=== PATIENT | male | born 1975 | race Caucasian/White ===

== ENCOUNTER → 2023-05-18 10:18 | Outpatient (CLI) | payer OTHER, SELFPAY ==
[2023-05-18 11:53] LABS: Hemoglobin A1C% w Est Avg Glu 5.2 % (4.0-6.0)
[2023-05-18 12:15] LABS: Alanine Aminotransferase 31 IU/L (<50); Albumin 4.6 g/dL (3.5-5.0); Albumin Globulin Ratio 1.6 (1.0-2.8); Alkaline Phosphatase 41 U/L (38-126); Aspartate Aminotransferase 21 IU/L (17-59); BUN Creatinine Ratio 25.2 (6-22); Bilirubin Total 0.7 mg/dL (0.2-1.3); Blood Urea Nitrogen 28 mg/dL (9-20); Calcium 9.7 mg/dL (8.4-10.2); Carbon Dioxide 28 mmol/L (22-32); Chloride 103 mmol/L (98-107); Cholesterol 198 mg/dL (140-199); Estimated Glomerular Filt Rate > 60 mL/min (>60); Globulin 2.8 g/dL (1.7-4.1); Glucose 86 mg/dL (70-100); HDL Cholesterol 56 mg/dL (40-60); HEMOLYSIS < 15 (0-50); LDL Cholesterol Calculated 130 mg/dL (<100); Potassium 4.4 mmol/L (3.4-5.1); Sodium 138 mmol/L (137-145); Total Protein 7.4 g/dL (6.3-8.2); Triglycerides 60 mg/dL (35-150)
== END ==
PROVIDERS: PCP Family Medicine; Referring Provider Family Medicine; Visit Provider Family Medicine
DX: Z00.00 Encounter for general adult medical examination without abnormal findings (principal); R73.01 Impaired fasting glucose; M77.00 Medial epicondylitis, unspecified elbow
CPT/HCPCS: 36415; 80053; 80061; 83036

== ENCOUNTER 2023-09-25 07:38 | Day surgery (SDC) | payer OTHER, SELFPAY ==
[2023-09-25 07:53] VITALS: BP 112/60; PULSE 53; RESP 16; TEMP 36.3; O2SAT 100
[2023-09-25] MEDS: LACTATED RINGERS 1,000 ML 42 ML IV (08:01)
--- NOTE | 2023-09-25 08:17 | P.HP_ITS ---
History of Present Illness History of Present Illness Date Patient Seen: 09/25/23 Time Patient Seen: 08:17 Chief complaint: SDC Narrative: 48-year-old man personal history of colonic polyps here for screening colonoscopy. Last colonoscopy 3-4 years ago. No family history of intestinal malignancy. No abdominal concerns today. FOR[facility]LY [facility] Medical History IFG (impaired fasting glucose) Surgical History History of arthroscopy of shoulder H/O nasal septoplasty Social History Smoking Status: Never smoker alcohol intake: current Meds Home Medications and Allergies Home Medications Medication Instructions Recorded Confirmed Type peg 3350-sod sulf,[id number] 1,000 ml PO DIRECTED #2,000 mL 08/20/23 Rx 178.7-7.3-0.5-1.12-0.9 gram oral soln (Suflave) Allergies Allergy/AdvReac Type Severity Reaction Status Date / Time No Known Drug Allergies Allergy Unverified 09/25/23 07:49 Exam Vital Signs (past 8 hours): - 09/25/23 07:53 Temperature 97.3 F L Pulse Rate 53 L Respiratory Rate 16 Blood Pressure 112/60 Pulse Oximetry 100 Oxygen Delivery Method Room Air Oxygen Delivery Method Room Air Narrative Exam Narrative: General adult man alert oriented no acute distress Chest nonlabored respiration Extremities warm well perfused Assessment & Plan Assessment & Plan narrative: The patient requires colorectal screening and colonoscopy is recommended. Technical details were discussed. Risks, benefits, alternatives explained. Risks including but not limited to myocardial infarction, aspiration, bleeding, pain, missed lesion, incomplete examination, need for further radiographic studies, colonic perforation, and need for major abdominal surgery were discussed. All questions were answered to their satisfaction, and they are in agreement with this plan.
[2023-09-25 08:55] VITALS: BP 98/36; PULSE 58; RESP 19; TEMP 36.1; O2SAT 94
--- NOTE | 2023-09-25 08:56 | P.OP.COLON_ITS ---
Operative Date/Time/Diagnoses Date of procedure: 09/25/23 Time of procedure: 08:56 Pre-op diagnosis: Personal history of colonic polyps Procedure & Clinicians Study performed: Colonoscopy Same procedure as scheduled: Yes Indications: Personal history of colonic polyps Colorectal screening Surgeon: Roderick Trujillo Procedure Notes Procedure in detail: The history and physical was performed/updated and the patient is ASA class is 1. The procedure was discussed in detail with the patient. Potential risks complications including infection, bleeding, missed diagnosis, perforation, need for surgery, and were explained. Their questions were answered and informed consent was obtained. Patient was brought to the procedure room and placed standard monitoring equipment. The patient's vital signs were monitored continuously throughout the entire procedure. Prior to starting time-out was performed. The patient was placed in the left lateral recumbent position. Procedural sedation was administered by anesthesia. Examination began with a thorough inspection of the perianal area there was no evidence of fissures, fistulae, external hemorrhoids or cutaneous malignancy. The colonoscopy scope was then placed into the anal canal and was advanced to the cecum, which was identified by the ileocecal valve, the appendiceal orifice and the confluence of the taenia. The scope was then slowly withdrawn examining colon thoroughly in all directions, irrigating it of any residual stool. The scope was retroflexed within the rectum The patient tolerated the procedure well. They will be discharged once criteria are met. The prep was of good/excellent quality. The withdrawl time was 7 minutes. FINDINGS * Normal healthy colon. No masses polyps or inflammation. * Previous endoscopic tattoo noted. Specimen(s): none sent Impression: Normal colonoscopy Post-procedure Recommendations: Colonoscopy in 10 years Disposition: same day surgery
[2023-09-25 09:00] VITALS: BP 99/51; PULSE 62; RESP 12; O2SAT 96
[2023-09-25 09:05] VITALS: BP 102/48; PULSE 51; RESP 18; TEMP 36.1; O2SAT 97
[2023-09-25 09:10] VITALS: BP 106/53; PULSE 48; RESP 17; TEMP 36.1; O2SAT 99
== END 2023-09-25 09:21 | disposition home or self-care (01) ==
PROVIDERS: PCP Family Medicine; Referring Provider Surgery; Visit Provider Surgery
PROC: 0DJD8ZZ Inspection of Lower Intestinal Tract, Via Natural or Artificial Opening Endoscopic (ICD-10-PCS; CPT 45378; principal; 2023-09-25 08:15)
DX: Z12.11 Encounter for screening for malignant neoplasm of colon (principal); Z86.010 Personal history of colon polyps
CPT/HCPCS: 45378; J2704

== ENCOUNTER 2024-05-07 16:24 | Emergency (ER) | payer OTHER, SELFPAY ==
[2024-05-07 16:34] VITALS: BP 140/70; PULSE 66; RESP 18; TEMP 36.6; O2SAT 98; BMI 26.4
--- NOTE | 2024-05-07 18:02 | ED.BACK ---
HPI - Back Pain/Injury <Awa Holguin PA-C - Last Filed: 05/07/24 19:20> General Chief Complaint: Back Pain/Injury Stated Complaint: lower back px, shooting down left leg Time Seen by Provider: 05/07/24 18:02 History of Present Illness HPI Narrative: Mr. Cain is a very pleasant 49-year-old male with no reported past medical history who presents to the emergency department for left-sided low back pain x2 weeks now radiating down the left leg x1 day. Patient reports he was lifting something about 2 weeks ago off the ground when he developed sudden but mild pain in the left side of his low back. States that this pain has been constant over the last 2 weeks and does not resolve with Advil. This morning when he woke up, he had sensation of sharp pain radiating down the left lateral thigh which prompted his ED arrival. Patient denies numbness, tingling, weakness, new trauma to the low back, bowel or bladder incontinence, history of cancer, history of IV drug use, fevers, chills, abdominal pain, chest pain, shortness of breath. Related Data Previous Rx's Medication Instructions Recorded cyclobenzaprine 5 mg tablet 5 mg PO TID PRN muscle spasm #15 05/07/24 tabs lidocaine 5 % topical patch 1 patch topical DAILY #15 ea 05/07/24 (Lidoderm) prednisone 20 mg tablet 40 mg (2 x 20 mg) PO DAILY 5 days 05/07/24 #10 tabs Allergies Allergy/AdvReac Type Severity Reaction Status Date / Time No Known Drug Allergies Allergy Unverified 09/25/23 07:49 Review of Systems <Awa Holguin PA-C - Last Filed: 05/07/24 19:20> Review of Systems ROS Unobtainable: All systems reviewed & are unremarkable except as noted in HPI and below Patient History <Awa Holguin PA-C - Last Filed: 05/07/24 19:20> Medical History IFG (impaired fasting glucose) Surgical History History of arthroscopy of shoulder H/O nasal septoplasty Social History Smoking Status: Never smoker alcohol intake: current Smoking Status: Never smoker alcohol intake frequency: holidays/special occasions only Substance Use Type: does not use Exam <Awa Holguin PA-C - Last Filed: 05/07/24 19:20> Narrative Exam Narrative: GENERAL: 49 year old patient appears stated age. Well-developed athletic patient, in no acute distress. HEAD: Atraumatic. Normocephalic. EYES: Extraocular motions intact. No scleral icterus. No injection or drainage. ENT: Nose without bleeding, purulent drainage. Airway patent. NECK: Trachea midline. Cervical ROM intact. No midline neck pain. CARDIOVASCULAR: Regular rate and rhythm. RESPIRATORY: ?Nonlabored respirations. ?Speaking in clear, full sentences. ?Clear to auscultation. Breath sounds equal bilaterally. No wheezes, rales, or rhonchi. ? GASTROINTESTINAL: Abdomen soft, non-tender, nondistended. EXTREMITIES: No edema or joint tenderness. BACK: Reproducible muscle spasm with palpation of the left lumbar paraspinal muscles. No midline tenderness of the lumbar spine, thoracic spine, or cervical spine. Negative bilateral straight leg raise. NEURO: AOx3. ?Clear speech. ?Moves all 4 extremities appropriately. 5/5 bilateral upper and lower extremity strength including plantar and dorsiflexion, knee flex/extension, hip extension. Sensation intact to light touch throughout the upper and lower extremities. SKIN: No rash or erythema of visible areas Initial Vital Signs Initial Vital Signs: Vital Signs Temperature 97.8 F 05/07/24 16:34 Pulse Rate 66 05/07/24 16:34 Respiratory Rate 18 05/07/24 16:34 Blood Pressure 140/70 05/07/24 16:34 Pulse Oximetry 98 05/07/24 16:34 Oxygen Delivery Method Room Air 05/07/24 16:34 <Becky Schilling DO - Last Filed: 05/08/24 02:37> Initial Vital Signs Initial Vital Signs: Vital Signs Temperature 97.8 F 05/07/24 16:34 Pulse Rate 66 05/07/24 16:34 Respiratory Rate 18 05/07/24 16:34 Blood Pressure 140/70 05/07/24 16:34 Pulse Oximetry 98 05/07/24 16:34 Oxygen Delivery Method Room Air 05/07/24 16:34 Course <Awa Holguin PA-C - Last Filed: 05/07/24 19:20> Orders Ordered: Discontinued Medications Acetaminophen (Acetaminophen 325 Mg Tablet) 975 mg PO NOW ONE Stop: 05/07/24 18:24 Last Admin: 05/07/24 18:49 Dose: 975 mg Documented By: ANDREWS Ketorolac Tromethamine (Ketorolac 30 Mg/Ml Vial) 30 mg IM NOW ONE Stop: 05/07/24 18:24 Last Admin: 05/07/24 18:49 Dose: 30 mg Documented By: ANDREWS Prednisone (Prednisone 20 Mg Tablet) 40 mg PO NOW ONE Stop: 05/07/24 18:24 Last Admin: 05/07/24 18:49 Dose: 40 mg Documented By: ANDREWS Vital Signs Vital signs: Vital Signs - 8 hr 05/07/24 18:58 Temperature 98.6 F Pulse Rate 70 Respiratory Rate 20 Blood Pressure 141/65 H Pulse Oximetry 100 Oxygen Delivery Method Room Air <Becky Schilling DO - Last Filed: 05/08/24 02:37> Orders Ordered: Discontinued Medications Acetaminophen (Acetaminophen 325 Mg Tablet) 975 mg PO NOW ONE Stop: 05/07/24 18:24 Last Admin: 05/07/24 18:49 Dose: 975 mg Documented By: ANDREWS Ketorolac Tromethamine (Ketorolac 30 Mg/Ml Vial) 30 mg IM NOW ONE Stop: 05/07/24 18:24 Last Admin: 05/07/24 18:49 Dose: 30 mg Documented By: ANDREWS Prednisone (Prednisone 20 Mg Tablet) 40 mg PO NOW ONE Stop: 05/07/24 18:24 Last Admin: 05/07/24 18:49 Dose: 40 mg Documented By: ANDREWS Vital Signs Vital signs: Vital Signs - 8 hr 05/07/24 18:58 Temperature 98.6 F Pulse Rate 70 Respiratory Rate 20 Blood Pressure 141/65 H Pulse Oximetry 100 Oxygen Delivery Method Room Air MDM - Back Pain/Injury <Awa Holguin PA-C - Last Filed: 05/07/24 19:20> MDM Narrative Medical decision making narrative: Otherwise healthy 49-year-old male presents to the emergency department for left low back pain radiating down the left leg. Differential diagnosis includes but is not limited to spinal stenosis, lumbar radiculopathy, muscle spasm, acute ligamentous injury, acute muscle strain, disc herniation, degenerative disc disease, spinal hematoma, other. Patient denies any red flag symptoms such as bowel or bladder dysfunction, immunocompromise history, IV drug use, direct trauma, fevers. On exam patient is in no acute distress, nontoxic-appearing, all vital signs within normal limits, steady gait and strong bilateral lower extremity strength. He has tenderness and reproducible muscle spasm in the left paraspinal lumbar region. Suspect patient's symptoms are related to a muscle strain and subsequent spasm of the left lumbar paraspinal region. I had an extensive discussion with the patient and after shared decision-making, we determined not to obtain a CT today as he has no neurologic deficits and no direct trauma to the back including no concerning past medical history. In the ED, we will treat with Toradol, Tylenol, prednisone. We will prescribe patient a short course of prednisone and muscle relaxers in addition to recommending ibuprofen, Tylenol, gentle exercise. Patient may also benefit from Lidoderm patches and warm compress. Discussed strict ER return precautions. Recommended follow up with PCP within the next week. Patient verbalized understanding of all information and is stable for discharge. Discharge Plan Departure Patient Disposition: Home Clinical Impression: Spasm of lumbar paraspinous muscle, Left lumbar radiculopathy Instructions: DI for Back Pain With Sciatica, DI for Back Spasm Activity Restrictions/Additional Instructions: Today you were evaluated for left-sided low back pain radiating down the left leg. Your physical exam is most consistent with a muscle spasm in this area. I have prescribed you a muscle relaxer called of Flexeril that you can take up to 3 times a day. If you do not have any improvement with the 5 mg dose, you can take 10 mg of Flexeril at 1 time. Please do not drink alcohol or drive a car while taking muscle relaxers as they can make you drowsy. Please also complete the course of prednisone which is a steroid to help with inflammation. You may use the prescribed lidocaine patches directly on area of pain. Please take 1000 mg of Tylenol and 600 mg of ibuprofen every 8 hours for pain. You may use heat compress on the muscle spasm to help as well. Please rest and perform light activities only. Avoid heavy lifting while your back hurts. Return to the ER immediately if you develop any new or worsening symptoms. Otherwise follow up with your primary care doctor in the next week for repeat evaluation. Thank you for letting me participate in your care, Awa Holguin PA-C Prescriptions: New cyclobenzaprine 5 mg tablet 5 mg PO TID PRN (Reason: muscle spasm) Qty: 15 0RF prednisone 20 mg tablet 40 mg PO DAILY 5 Days Qty: 10 0RF lidocaine [Lidoderm] 5 % adhesive patch,medicated 1 patch topical DAILY Qty: 15 0RF Rx Instructions: leave on most painful area for up to 12 hrs Referrals: Laureen Stallworth DO [Primary Care Provider] - Stand Alone Forms: Patient Portal/API/Survey ED Sign-out <Becky Schilling DO - Last Filed: 05/08/24 02:37> Cosign ED Attending Yfnature Attestation: I was available for consultation.
[2024-05-07] MEDS: ACETAMINOPHEN 325 MG TABLET 975 MG PO (18:49)
[2024-05-07] MEDS: KETOROLAC 30 MG/ML VIAL IM (18:49)
[2024-05-07] MEDS: predniSONE 20 MG TABLET 40 MG PO (18:49)
[2024-05-07 18:58] VITALS: BP 141/65; PULSE 70; RESP 20; TEMP 37; O2SAT 100
== END 2024-05-07 18:58 | disposition home or self-care (01) ==
PROVIDERS: Emergency Provider Physician Assistant; PCP Family Medicine
DX: M62.830 Muscle spasm of back (principal); M54.16 Radiculopathy, lumbar region
CPT/HCPCS: 96372; 99283; J1885

== ENCOUNTER → 2024-05-20 10:39 | Outpatient (CLI) | payer BC, OTHER, SELFPAY ==
[2024-05-20 11:34] LABS: Alanine Aminotransferase 30 IU/L (<50); Albumin 4.6 g/dL (3.5-5.0); Albumin Globulin Ratio 2.1 (1.0-2.8); Alkaline Phosphatase 41 U/L (38-126); Aspartate Aminotransferase 22 IU/L (17-59); BUN Creatinine Ratio 20.7 (6-22); Bilirubin Total 0.5 mg/dL (0.2-1.3); Blood Urea Nitrogen 30 mg/dL (9-20); Calcium 9.7 mg/dL (8.4-10.2); Carbon Dioxide 27 mmol/L (22-32); Chloride 103 mmol/L (98-107); Cholesterol 212 mg/dL (140-199); Estimated Glomerular Filt Rate 59 mL/min (>60); Globulin 2.2 g/dL (1.7-4.1); Glucose 55 mg/dL (70-100); HDL Cholesterol 70 mg/dL (40-60); HEMOLYSIS < 15 (0-50); LDL Cholesterol Calculated 127 mg/dL (<100); Potassium 4.2 mmol/L (3.4-5.1); Sodium 138 mmol/L (137-145); Total Protein 6.8 g/dL (6.3-8.2); Triglycerides 77 mg/dL (35-150)
[2024-05-20 12:05] LABS: Prostate Specific Antigen Scrn 0.865 ng/mL (0.1-4.0)
[2024-05-20 12:26] LABS: HIV 1 & 2 Ab/Ag 4th Gen Combo NEGATIVE (NEGATIVE); Hep C Virus Ab w/Reflex Quant NEGATIVE s/c (NEGATIVE)
== END ==
PROVIDERS: PCP Family Medicine; Referring Provider Family Medicine; Visit Provider Family Medicine
DX: Z00.00 Encounter for general adult medical examination without abnormal findings (principal); Z12.5 Encounter for screening for malignant neoplasm of prostate
CPT/HCPCS: 36415; 80053; 80061; 86803; 87389; G0103

== ENCOUNTER → 2024-07-11 11:05 | Outpatient (CLI) | payer BC, OTHER, SELFPAY ==
[2024-07-11 12:12] LABS: Add Manual Diff / Slide Review NO; Basophils Absolute Auto 0 /uL (0-100); Basophils Percent Auto 0.6 % (0-2); Eosinophils Absolute Auto 100 /uL (0-450); Eosinophils Percent Auto 1.1 % (2-4); Hematocrit 43.3 % (41-53); Hemoglobin 14.7 g/dL (13.5-17.5); Lymphocytes Absolute Auto 1700 /uL (1100-4500); Lymphocytes Percent Auto 33.9 % (25-40); Mean Corpuscular Hemoglobin 29.8 PG (26-34); Mean Corpuscular Volume 87.6 fL (80-100); Monocytes Absolute Auto 400 /uL (0-900); Monocytes Percent Auto 7.6 % (3-14); Neutrophils Absolute Auto 2900 /uL (1500-7000); Neutrophils Percent Auto 56.8 % (50-75); Platelet Count 234 X10^3/uL (150-400); Red Blood Cell Count 4.94 X10^6/uL (4.5-5.9); Red Cell Distribution Width 14.6 % (11.6-14.8); White Blood Cell Count 5.1 X10^3/uL (4.5-11.0)
[2024-07-11 12:31] LABS: BUN Creatinine Ratio 22.3 (6-22); Blood Urea Nitrogen 23 mg/dL (9-20); Calcium 9.4 mg/dL (8.4-10.2); Carbon Dioxide 28 mmol/L (22-32); Chloride 101 mmol/L (98-107); Estimated Glomerular Filt Rate > 60 mL/min (>60); Glucose 127 mg/dL (70-100); HEMOLYSIS < 15 (0-50); Potassium 4.1 mmol/L (3.4-5.1); Sodium 138 mmol/L (137-145)
[2024-07-11 13:48] LABS: Appearance Urine UA CLEAR; Bilirubin Urine UA NEGATIVE (NEGATIVE); Color Urine UA YELLOW; Glucose Urine UA NEGATIVE (Negative); Ketones Urine UA NEGATIVE (NEGATIVE); Leukocyte Esterase Urine UA NEGATIVE (NEGATIVE); Nitrite Urine UA NEGATIVE (Negative); Occult Blood Urine UA NEGATIVE (Negative); Protein Urine UA NEGATIVE (Negative); Specific Gravity Urine UA <=1.005 (1.000-1.035); Urobilinogen Urine UA 0.2 E.U./dL (0.2); pH Urine UA 5.5 (4.5-8.0)
[2024-07-11 13:50] LABS: Urine Volume 10mL (spun)
[2024-07-11 13:51] LABS: Bacteria Urine None Seen; Culture Indicated Urine Cult Not Indicated; RBC Urine None Seen (0-5/HPF); Squamous Epithelial Cell Urine None Seen (0-5/HPF); WBC Urine None Seen (0-5/HPF)
[2024-07-11 14:51] LABS: Creatinine Urine Random 34.54 mg/dL
[2024-07-11 14:57] LABS: Microalbumin Urine Random < 0.6 mg/dL (0-1.6)
== END ==
PROVIDERS: PCP Family Medicine; Referring Provider Family Medicine; Visit Provider Family Medicine
DX: N28.9 Disorder of kidney and ureter, unspecified (principal)
CPT/HCPCS: 36415; 80048; 81001; 82043; 82570; 85025

== ENCOUNTER → 2024-07-18 09:02 | Outpatient (CLI) | payer OTHER, SELFPAY | PROVIDERS: PCP Family Medicine; Referring Provider Family Medicine; Visit Provider Family Medicine | DX: R73.01 Impaired fasting glucose (principal) | CPT/HCPCS: 36415; 83036 ==

== ENCOUNTER 2024-11-28 19:33 | Emergency (ER) | payer OTHER, SELFPAY ==
[2024-11-28 19:35] VITALS: BP 119/56; PULSE 59; RESP 16; TEMP 36.7; O2SAT 98; BMI 26.5
--- NOTE | 2024-11-28 21:08 | ED_ITS ---
HPI - Neck Pain/Injury General Chief Complaint: Neck Pain/Injury Stated Complaint: possible ear infection throat hurts Time Seen by Provider: 11/28/24 21:08 Mode of arrival: Ambulatory History of Present Illness HPI Narrative: 49-year-old male without any significant past medical history comes into the ED from home for evaluation of multiple complaints. He states that he has been having left-sided neck/throat discomfort for the past 2 weeks, states it is not getting any worse but is not improving, he states that he has a about to travel in the next week and wanted it to be evaluated, he denies any difficulty swallowing breathing, on exam patient is speaking in full sentences protecting airway no voice changes no stridor no trismus. Related Data Previous Rx's ?Medication ?Instructions ?Recorded valacyclovir 1 gram tablet 2,000 mg (2 x 1 gram) PO .C OMPLEX 08/11/24 PRN cold sores #4 tabs scopolamine base 1 mg over 3 days 1 patch transdermal Q3D PRN sea 11/24/24 transdermal patch sickness #10 ea amoxicillin 875 mg-potassium 1 tab PO BID 10 days #20 tabs 11/28/24 clavulanate 125 mg tablet Allergies Allergy/AdvReac Type Severity Reaction Status Date / Time No Known Drug Allergies Allergy Verified 11/28/24 19:41 Review of Systems Review of Systems Narrative: General: Denies fever, chills, weight loss HEENT: Positive sore throat, Denies headache, eye drainage, eye irritation, head trauma,voice change Cardiovascular: Denies any chest pain, palpitations, tachycardia Respiratory: Denies any shortness of breath, cough, wheeze, stridor GI/: Denies any abdominal pain, nausea, vomiting, diarrhea, bright red blood per rectum, melanotic stools, urinary frequency, urinary retention, dysuria, hematuria MSK: Denies any joint pain, muscle pains, swelling Skin: Denies any rashes, lesions, discoloration Neuro: Denies any headache, lightheadedness, dizziness, fainting, weakness Psych: Denies SI/HI Patient History Medical History IFG (impaired fasting glucose) Surgical History History of arthroscopy of shoulder H/O nasal septoplasty Social History alcohol intake: current alcohol intake frequency: holidays/special occasions only Exam Narrative Exam Narrative: General: Cooperative, well-developed, not in acute distress HEENT: Normocephalic, atraumatic, PERRLA, normal sclera, eyelids normal, patient is speaking in full sentences protecting airway, no voice changes no stridor no trismus, tolerating secretions Neck: Active full range of motion, atraumatic Chest: Normal to inspection, negative crepitus, no overlying erythema ecchymosis Respiratory: Normal respiratory effort, not in acute respiratory distress, clear to auscultation bilaterally negative cough, wheeze, tachypnea, rhonchi, rales Cardiology: Regular rate rhythm negative gallop, murmur, rubs GI/: No tenderness to palpation, soft, non rigid, normal to inspection, exam deferred MSK: Full active range of motion in all 4 extremities, atraumatic, no tenderness to palpation of any bony prominences Skin: No rashes or lesions noted Neuro: Alert awake oriented x3, moves all 4 extremities spontaneously, cranial nerves intact, able to answer all questions appropriately follows commands appropriately Psych: Cooperative, negative suicidal or homicidal ideations Initial Vital Signs Initial Vital Signs: Vital Signs Temperature 98.0 F 11/28/24 19:35 Pulse Rate 59 L 11/28/24 19:35 Respiratory Rate 16 11/28/24 19:35 Blood Pressure 119/56 L 11/28/24 19:35 Pulse Oximetry 98 11/28/24 19:35 Oxygen Delivery Method Room Air 11/28/24 19:35 Course Vital Signs Vital signs: Vital Signs - 8 hr 11/28/24 19:35 Temperature 98.0 F Pulse Rate 59 L Respiratory Rate 16 Blood Pressure 119/56 L Pulse Oximetry 98 Oxygen Delivery Method Room Air MDM - Neck Pain/Injury Differential Diagnosis Differential diagnosis: Likely other (Otitis media, otitis externa, viral pharyngitis, bacterial pharyngitis) MDM Narrative Medical decision making narrative: 49-year-old male without any significant past medical history presents from home for evaluation of left ear pain and left-sided throat pain, states it has been intermittent in nature for the past 2 weeks, he states that he only eats present ing because he is supposed to go to a remote fishing trip in about a week in [place] and he wanted to be ?checked out before he goes on exam patient is well- appearing nontoxic there is no signs of otitis media or externa, posterior oropharynx is clear without any signs of exudate. Patient is speaking full sentences protecting airway no voice changes no stridor no trismus, risks benefits was performed with the patient in regards to strep test as well as antibiotics, shared decision making was made and patient will be discharged with antibiotics for possible bacterial pharyngitis, patient was told to start this if his symptoms get worse or do not get any better. He understands and agrees with this plan, patient will be discharged home with outpatient follow up. Discharge Plan Departure Patient Disposition: Home Clinical Impression: Pharyngitis Activity Restrictions/Additional Instructions: Please follow up with the primary care doctor Please read the discharge instructions sheet carefully and bring all papers to all doctor follow-up visits, as it may contain information that your doctor may want to see. Disease processes change and evolve, if your symptoms worsen or if you develop any new symptoms that are concerning to you please return for evaluation. Your evaluation today does not show any evidence of any life- threatening/serious illnesses requiring admission to the hospital or surgery. Please follow-up with your doctor for re-evaluation in approximately 1 day. See k immediate medical attention for any worrisome symptoms. *If you do not have a primary care provider please contact the [facility] Resource line at [phone]. They will ask some questions about your medical history and help get you set up with a doctor in the community. Prescriptions: New amoxicillin-pot clavulanate 875-125 mg tablet 1 tab PO BID 10 Days Qty: 20 0RF No Action valacyclovir 1 gram tablet 2,000 mg PO .COMPLEX PRN (Reason: cold sores) Qty: 4 11RF Rx Instructions: 2,000 mg orally BID x1day PRN; scopolamine base 1 mg over 3 days patch 3 day 1 patch transdermal Q3D PRN (Reason: sea sickness) Qty: 10 1RF Referrals: Laureen Stallworth DO [Primary Care Provider, Family Practice] Stand Alone Forms: Patient Portal/API
[2024-11-28 21:36] VITALS: BP 118/57; PULSE 57; RESP 16; O2SAT 97
== END 2024-11-28 21:37 | disposition home or self-care (01) ==
PROVIDERS: Emergency Provider Student in an Organized Health Care Education/Training Program; PCP Family Medicine
DX: J02.9 Acute pharyngitis, unspecified (principal)
CPT/HCPCS: 99281